=== PATIENT | female | born 1990 | race Caucasian/White ===

== ENCOUNTER 2016-07-24 20:14 | Emergency (ER) | payer OTHER ==
[2016-07-24] MEDS ORDERED: NS 0.9% 1000 ML* 1,000 ML IV ONE (20:36)
[2016-07-24 21:00] LABS: Hematocrit 43 % (35-47); Hemoglobin 14.2 g/dl (12.0-16.0); Mean Corpuscular HGB Conc 34 g/dl (31-36); Mean Corpuscular Hemoglobin 30 pg (27-31); Mean Corpuscular Volume 88 fL (80-97); Mean Platelet Volume 9 um3 (7.4-10.4); Red Blood Count 4.81 10^6/ul (4.0-5.4); Red Cell Distribution Width 13 % (10.5-15); White Blood Count 9.5 10^3/ul (3.5-10.8)
--- NOTE | 2016-07-24 21:07 | ED ---
Alonso Montesinos Billy, scribed for Naman Molina MD on 07/24/16 at 2044 . GI/ HPI - HPI Summary HPI Summary: Patient is a 26 year-old female coming to the ED with increased black, thick ostomy output today. She also reports pressure and sharp pain behind her ostomy in the RLQ. She further describes nausea and lightheadedness; denies fever. She states she recently started new medications today; she swallowed one of the pills whole. She called the GI solderer electronic at [facility] who recommended that she come to the ED for imaging to r/o any obstruction. - History of Current Complaint Chief Complaint: EDAbdPain Time Seen by Provider: 07/24/16 20:28 Stated Complaint: PROBLEM WITH STOMA Hx Obtained From: Patient Onset/Duration: Started Hours Ago Timing: Constant Severity: Moderate Current Severity: Moderate Location of Pain: RLQ Pain Characteristics: Sharp, Pressure Associated Signs and Symptoms: Positive: Nausea, Black Tarry Stool, Other: - lightheaded. Negative: Fever - Additional Pertinent History Primary Care Physician: MARV - Allergy/Home Medications Allergies/Adverse Reactions: Allergies Allergy/AdvReac Type Severity Reaction Status Date / Time Cefuroxime [From Ceftin] Allergy Severe Anaphylatic Verified 09/16/15 18:13 Shock Cephalosporins Allergy Severe Anaphylatic Verified 09/16/15 18:13 Shock Penicillins [PCN] Allergy Severe Anaphylatic Verified 09/16/15 18:13 Shock Oxycodone Allergy Hives/Diff. Verified 11/23/15 08:18 Breathing/I tching [place] Allergy Anaphylatic Verified 09/16/15 18:13 Shock PMH/Surg Hx/FS Hx/Imm Hx Endocrine/Hematology History: Denies: Hx Diabetes Cardiovascular History: Denies: Hx Congestive Heart Failure, Hx Hypertension, Hx Pacemaker/ICD Respiratory History: Reports: Hx Pneumonia, Other Respiratory Problems/ Disorders - H/O PULMONARY NODULES GI History: Reports: Hx Irritable Bowel, Other GI Disorders - ULCERATIVE COLITIS , COLOSTOMY History: Reports: Other Problems/Disorders - UTI SEVERAL YEARS AGO Denies: Hx Renal Disease Sensory History: Reports: Hx Contacts or Glasses Denies: Hx Hearing Aid Opthamlomology History: Reports: Hx Contacts or Glasses Psychiatric History: Reports: Hx Anxiety, Hx Depression Denies: Hx Panic Disorder - Surgical History Surgery Procedure, Year, and Place: ILEOSTOMY, BOWEL RESECTION WITH DRAIN FOR HEMATOMA FROM SURGERY, APPENDECTOMY DURING BOWEL RESECTION 2014 & 01/2016 COMPLETION Hx Anesthesia Reactions: No - Immunization History Date of Tetanus Vaccine: Unk Date of Influenza Vaccine: None Infectious Disease History: Reports: Hx Clostridium Difficile Denies: Traveled Outside the [place] in Last 30 Days - Family History Known Family History: Positive: Other - colon cancer - Social History Alcohol Use: None Substance Use Type: Reports: Prescribed Substance Use Comment - Amount & Last Used: DILAUDID RX Hx Tobacco Use: No Smoking Status (MU): Never Smoked Tobacco Review of Systems Negative: Fever Positive: Abdominal Pain, Nausea, Other - thick black ostomy output Neurological: Other - lightheaded All Other Systems Reviewed And Are Negative: Yes Physical Exam Triage Information Reviewed: Yes Vital Signs On Initial Exam: Initial Vitals Temp Pulse Resp BP Pulse Ox 98.1 F 87 18 132/75 99 07/24/16 20:58 07/24/16 20:58 07/24/16 20:58 07/24/16 20:58 07/24/16 20:58 Vital Signs Reviewed: Yes Appearance: Positive: Well-Appearing, No Pain Distress Skin: Positive: Warm Head/Face: Positive: Normal Head/Face Inspection ENT: Positive: Hearing grossly normal Neck: Positive: Supple Respiratory/Lung Sounds: Positive: Clear to Auscultation Cardiovascular: Positive: Normal Abdomen Description: Positive: Nontender, Soft Bowel Sounds: Positive: Present, Other - ostomy with some drainage Musculoskeletal: Positive: Strength/ROM Intact Neurological: Positive: Sensory/Motor Intact, Alert, Oriented to Person Place, Time Psychiatric: Positive: Affect/Mood Appropriate Diagnostics - Vital Signs Vital Signs Temp Pulse Resp BP Pulse Ox 07/24/16 20:58 98.1 F 87 18 132/75 99 - Laboratory Result Diagrams: 07/24/16 20:50 07/24/16 20:50 Lab Statement: Any lab studies that have been ordered have been reviewed, and results considered in the medical decision making process. - CT abd/pel w CT Interpretation Completed By: Radiologist - 1. STATUS POST COLECTOMY AND ILEOSTOMY. 2. NO OBSTRUCTION. 3. SMALL AMOUNT OF FLUID WITHIN THE PELVIC CUL- DE-SAC, DECREASED FROM PREVIOUS EXAMINATIONS. Re-Evaluation - Re-Evaluation First Eval Change: Improved GIGU Course/Dx - Diagnoses Provider Diagnoses: Abdominal pain Discharge - Discharge Plan Condition: Stable Disposition: HOME Patient Education Materials: Abdominal Pain (ED) Referrals: Katia Olmos PA [Primary Care Provider] - The documentation as recorded by the Alonso jackson Billy accurately reflects the service I personally performed and the decisions made by me, Naman Molina MD.
[2016-07-24 21:16] LABS: ALT 17 U/L (7-52); AST 18 U/L (13-39); Albumin 4.7 g/dL (3.2-5.2); Alkaline Phosphatase 39 U/L (34-104); Anion Gap -4 mmol/L (2-11); Blood Urea Nitrogen 14 mg/dL (6-24); C Reactive Protein 3.58 mg/L (< 5.00); CO2 Carbon Dioxide 24 mmol/L (22-32); Calcium 9.9 mg/dL (8.6-10.3); Chloride 110 mmol/L (101-111); EGFR African American 151.3 (>60); EGFR Non-African American 117.7 (>60); Globulin 3.1 g/dL (2-4); Glucose 92 mg/dL (70-100); Lipase 20 U/L (11.0-82.0); Magnesium 1.9 mg/dL (1.9-2.7); Potassium 3.4 mmol/L (3.5-5.0); Sodium 130 mmol/L (133-145); Total Protein 7.8 g/dL (6.4-8.9)
[2016-07-24] MEDS ORDERED: Iohexol 300* (CONTRAST) 10 ML SDV IV ONE (21:29)
--- NOTE | 2016-07-24 22:38 | RAD ---
CLINICAL HISTORY: Abdominal pain COMPARISON: December 24, 2015, November 23, 2015 TECHNIQUE: Multiple contiguous axial CT scans were obtained of the abdomen and pelvis after the administration of intravenous contrast. Coronal and sagittal multiplanar reformations are submitted for review. Oral contrast was administered. Delayed images were obtained through the abdomen FINDINGS: LUNG BASES: The lung bases are clear. LIVER: There is wedge-shaped hypoattenuation of the right lobe of liver that resolves on delayed images most consistent with transient hepatic attenuation differences.. The portal veins and hepatic veins are patent. The hepatic arteries grossly normal. BILE DUCTS: There is no intrahepatic or extrahepatic biliary dilatation. GALLBLADDER: The gallbladder is normal, without pericholecystic inflammatory change. PANCREAS: The pancreas is normal, without mass or ductal dilatation. SPLEEN: Normal in size and appearance. UPPER GI TRACT: Evaluation of the gastrointestinal tract is limited by incomplete gastric distention. The upper GI tract is unremarkable. SMALL BOWEL AND MESENTERY: The small bowel is normal in contour, course, and caliber. There is no obstruction or dilatation. Ileostomy is noted. COLON: The patient appears to be status post total colectomy. ADRENALS: Normal bilaterally. KIDNEYS: The kidneys are normal in shape, size, contour, and axis. There is no hydronephrosis or nephrolithiasis. BLADDER: The bladder is smooth in contour. PELVIC ORGANS: There is a small amount of fluid within the pelvic cul-de-sac, decreased from previous examination the pelvic organs are grossly normal for technique... AORTA: The aorta is normal. IVC: Unremarkable LYMPH NODES: There is no lymphadenopathy by size criteria. ABDOMINAL WALL: There is no evidence for abdominal wall hernia. BONES AND SOFT TISSUES: There are mild diffuse degenerative changes. OTHER: None IMPRESSION: 1. STATUS POST COLECTOMY AND ILEOSTOMY. 2. NO OBSTRUCTION. 3. SMALL AMOUNT OF FLUID WITHIN THE PELVIC CUL-DE-SAC, DECREASED FROM PREVIOUS EXAMINATIONS.
[2016-07-24 23:23] VITALS: BP 129/80
== END 2016-07-24 23:23 | disposition home or self-care (01) ==
LOC: ED 20:14
DX: R10.31 Right lower quadrant pain (principal); Z88.0 Allergy status to penicillin; Z88.5 Allergy status to narcotic agent
CPT/HCPCS: 36415; 74177; 80053; 83690; 83735; 84702; 85025; 86140; 96360; 99283; Q9967

== ENCOUNTER 2018-04-15 21:20 | Emergency (ER) | payer BC, MEDICAID, MEDICARE ==
--- NOTE | 2018-04-15 21:56 | ED ---
Abdominal Pain/Female - HPI Summary HPI Summary: The pt is a 27 y/o female with an ileostomy bag presenting to [facility] c/o of R sided abd pain since 3 days ago when she had a scope at [facility]. The constant stabbing pain rated 6/10 in severity is aggravated by any output of stool. She has had the ileostomy bag since 2014. The pt notes nausea but denies vomiting and suspects a fistula. She took Tylenol and Advil to no relief. - History of Current Complaint Chief Complaint: EDAbdPain Stated Complaint: ABD PAIN Time Seen by Provider: 04/15/18 21:49 Hx Obtained From: Patient Onset/Duration: Lasting Days - 3 days, Still Present Timing: Constant Severity Currently: Moderate Pain Intensity: 6 Pain Scale Used: 0-10 Numeric Location: Discrete At: RLQ Radiates: No Aggravating Factor(s): Other: - Output of stool Alleviating Factor(s): Nothing Associated Signs and Symptoms: Positive: Nausea. Negative: Vomiting Allergies/Adverse Reactions: Allergies Allergy/AdvReac Type Severity Reaction Status Date / Time cefuroxime [From Ceftin] Allergy Severe Anaphylatic Verified 04/15/18 21:28 Shock Cephalosporins Allergy Severe Anaphylatic Verified 04/15/18 21:28 Shock oxycodone Allergy Severe Hives/Diff. Verified 04/15/18 21:28 Breathing/I tching Penicillins Allergy Severe Anaphylatic Verified 04/15/18 21:28 Shock strawberry Allergy Severe Anaphylatic Verified 04/15/18 21:28 Shock Home Medications: Home Medications Fluticasone NASAL SPRAY 50MCG* [Flonase NASAL SPRAY 50MCG*] 1 spray BOTH NARES DAILY 04/15/18 [History Confirmed 04/15/18] Levocetirizine Dihydrochloride 5 mg PO DAILY 04/15/18 [History Confirmed ] Mesalamine (NF) [Apriso (NF)] 1 cap PO QID 04/15/18 [History Confirmed 04/15/18] Norethindrone/Eth Est 1.5NF [Junel .12/14 (NF)] 1 tab PO DAILY 04/15/18 [ History Confirmed 04/15/18] PMH/Surg Hx/FS Hx/Imm Hx Previously Healthy: No Endocrine/Hematology History: Denies: Hx Diabetes Cardiovascular History: Denies: Hx Congestive Heart Failure, Hx Hypertension, Hx Pacemaker/ICD Respiratory History: Reports: Hx Pneumonia, Other Respiratory Problems/ Disorders - H/O PULMONARY NODULES GI History: Reports: Hx Irritable Bowel, Other GI Disorders - ULCERATIVE COLITIS , COLOSTOMY History: Reports: Other Problems/Disorders - UTI SEVERAL YEARS AGO Denies: Hx Dialysis, Hx Renal Disease Sensory History: Reports: Hx Contacts or Glasses Denies: Hx Hearing Aid Opthamlomology History: Reports: Hx Contacts or Glasses Psychiatric History: Reports: Hx Anxiety, Hx Depression Denies: Hx Panic Disorder - Surgical History Surgery Procedure, Year, and Place: ILEOSTOMY, BOWEL RESECTION WITH DRAIN FOR HEMATOMA FROM SURGERY, APPENDECTOMY DURING BOWEL RESECTION 2014 & 01/2016 COMPLETION Hx Anesthesia Reactions: No - Immunization History Date of Tetanus Vaccine: Unk Date of Influenza Vaccine: None Infectious Disease History: Yes Infectious Disease History: Reports: Hx Clostridium Difficile Denies: Traveled Outside the [place] in Last 30 Days - Family History Known Family History: Positive: Other - colon cancer - Social History Lives: Alone Alcohol Use: None Substance Use Type: Reports: None Substance Use Comment - Amount & Last Used: DILAUDID RX Hx Tobacco Use: No Smoking Status (MU): Never Smoked Tobacco Review of Systems Negative: Fever Positive: Abdominal Pain - RLQ , Nausea. Negative: Vomiting All Other Systems Reviewed And Are Negative: Yes Physical Exam - Summary Physical Exam Summary: Appearance: Well appearing, no pain distress Skin: warm, dry, reflects adequate perfusion Head/face: normal Eyes: EOMI, ASHIA ENT: normal Neck: supple, non-tender Respiratory: CTA, breath sounds present Cardiovascular: RRR, pulses symmetrical Abdomen: non-tender, soft; ileostomy bag in the RLQ Bowel sounds : present Musculoskeletal: normal, strength/ROM intact Neuro: normal, sensory motor intact, A&Ox3 Triage Information Reviewed: Yes Vital Signs On Initial Exam: Initial Vitals Temp Pulse Resp BP Pulse Ox 97.7 F 105 16 132/85 100 04/15/18 21:24 04/15/18 21:24 04/15/18 21:24 04/15/18 21:24 04/15/18 21:24 Vital Signs Reviewed: Yes Diagnostics - Vital Signs Vital Signs Temp Pulse Resp BP Pulse Ox 04/15/18 21:24 97.7 F 105 16 132/85 100 - Laboratory Result Diagrams: 04/15/18 22:30 04/15/18 22:30 Lab Statement: Any lab studies that have been ordered have been reviewed, and results considered in the medical decision making process. - CT Abd/Pel CT CT Interpretation Completed By: Radiologist - IMPRESSION 1. Stable punctate nonobstructive left nephrolithiasis. 2. No other acute CT pathology. Return to ED for any new or worsening symptoms Abdominal Pain Fem Course/Dx - Course Course Of Treatment: A 27 year-old F with a PMHx of ulcerative colitis presents to the ED with a CC of R sided abd pain since 3 days ago when she had a scope at [facility]. The constant stabbing pain rated 6/10 in severity is aggravated by any stool output. She has had the ileostomy bag since 2014. The pt notes nausea but denies vomiting and suspects a fistula. She took Tylenol and Advil to no relief. A physical exam revealed an ileostomy bag in the RLQ. AN Abd/Pel CT revealed stable punctate nonobstructive left nephrolithiasis. In the ED course, pt was given Iohexol 77ml IV, N.s 0.9% 1000ml IV, Morphine 4mg IV and Ondansetron 4mg IV which improved the symptoms. The pt asked for narcotics. She will be discharged with a final Dx of non- specific abd pain with instructions to follow up with her PCP. The pt is agreeable with this plan. Allergies noted - Diagnoses Differential Diagnosis: Positive: Appendicitis, Bowel Obstruction, Diverticulitis, Renal Colic Provider Diagnoses: Nonspecific abdominal pain Discharge - Sign-Out/Discharge Documenting (check all that apply): Patient Departure - DC - Discharge Plan Condition: Improved Disposition: HOME Prescriptions: traMADol TAB* [Ultram*] 50 mg PO Q12H PRN #6 tab MDD 3 PRN Reason: Pain Patient Education Materials: Abdominal Pain (ED) Forms: *Work Release Referrals: Dilma Palacios MD [Primary Care Provider] - 3 Days Additional Instructions: Return to ED for any new or worsening symptoms - Billing Disposition and Condition Condition: IMPROVED Disposition: Home - Attestation Statements Document Initiated by Scribe: Yes Documenting Scribe: Carmel Masterson Provider For Whom Scribe is Documenting (Include Credential): Dr. Beto Lazo MD Scribe Attestation: I, Carmel Masterson , scribed for Dr. Beto Lazo MD on 04/16/18 at 0504. Scribe Documentation Reviewed: Yes Provider Attestation: The documentation as recorded by the scribe, Carmel Masterson accurately reflects the service I personally performed and the decisions made by me, Dr. Beto Lazo MD
[2018-04-15] MEDS ORDERED: Ondansetron INJ* 2 MG/ML VIAL IV ONE (22:15)
[2018-04-15] MEDS ORDERED: NS 0.9% 1000 ML* 1,000 ML IV ONE (22:15)
[2018-04-15] MEDS ORDERED: Morphine INJ* 2 MG/ML 1 ML SYRINGE (TWO MG - NEW SYRINGE VERSION) IV ONE (22:15)
[2018-04-15] MEDS ORDERED: Morphine INJ* 4 MG/ML 1 ML SYRINGE (NEW SYRINGE VERSION) ONE (22:26)
[2018-04-15 22:58] LABS: ABS Basophils 0 10^3/ul (0-0.2); ABS Eosinophils 0.5 10^3/ul (0-0.6); ABS Lymphocytes 3.5 10^3/ul (1.0-4.8); ABS Monocytes 0.3 10^3/ul (0-0.8); ABS Neutrophils 3.6 10^3/ul (1.5-7.7); ABS Nucleated RBC 0 10^3/ul; Eosinophil % 6.4 % (0-6); Hematocrit 41 % (35-47); Hemoglobin 14.2 g/dl (12.0-16.0); Lymphocyte % 44.3 % (25-47); Mean Corpuscular HGB Conc 35 g/dl (31-36); Mean Corpuscular Hemoglobin 31 pg (27-31); Mean Corpuscular Volume 90 fL (80-97); Mean Platelet Volume 8.3 um3 (7.4-10.4); Nucleated Red Blood Cells % 0.1; Platelet Count 212 10^3/ul (150-450); Red Blood Count 4.56 10^6/ul (4.00-5.40); Red Cell Distribution Width 12 % (10.5-15); White Blood Count 7.8 10^3/ul (3.5-10.8)
[2018-04-15 23:08] LABS: INR 0.94 (0.77-1.02)
[2018-04-15 23:19] LABS: EGFR Non-African American 99.6 (>60)
[2018-04-15 23:28] LABS: Urine Appearance Cloudy; Urine Blood Negative (Negative); Urine Color Yellow; Urine Ketones Negative (Negative); Urine Protein Negative (Negative); Urine Specific Gravity 1.008 (1.010-1.030); Urine Urobilinogen Negative (Negative)
[2018-04-15] MEDS ORDERED: Iohexol 300* (CONTRAST) 10 ML SDV IV ONE (23:34)
--- NOTE | 2018-04-16 00:49 | RAD ---
EXAM: CT Abdomen and Pelvis With Intravenous Contrast CLINICAL HISTORY: 27 years old, female; Pain; Abdominal pain; Generalized; Prior surgery; Surgery date: 6+ months; Additional info: Abd pain/ileostomy/rt lq tend TECHNIQUE: Axial computed tomography images of the abdomen and pelvis with intravenous contrast. All CT scans at this facility use at least one of these dose optimization techniques: automated exposure control; mA and/or kV adjustment per patient size (includes targeted exams where dose is matched to clinical indication); or iterative reconstruction. Coronal and sagittal reformatted images were created and reviewed. CONTRAST: 77 mL of OMNI administered intravenously. COMPARISON: A/P WO CT ABD/PEL W/O 12/24/2015 2:16 AM, CT abdomen and pelvis July 24, 2016 FINDINGS: Lung bases: Stable right lower lobe parenchymal scarring. Stable 2-3 mm indeterminate right lower lobe pulmonary nodules. ABDOMEN: Liver: Significant decrease in size of wedge-shaped or linear region of decreased enhancement in the right lobe of the liver that is no longer apparent on delayed imaging, likely of no clinical significance. There is likely focal fat in liver adjacent to the falciform ligament. Stable mild hepatomegaly. Gallbladder and bile ducts: Unremarkable. No calcified stones. No ductal dilation. Pancreas: Unremarkable. No mass. No ductal dilation. Spleen: Unremarkable. No splenomegaly. Adrenals: Unremarkable. No mass. Kidneys and ureters: Stable punctate nonobstructive left nephrolithiasis. Stomach and bowel: Stable right lower quadrant ileostomy. Stable likely postoperative changes of colectomy. No obstruction. PELVIS: Appendix: The appendix is surgically absent. Bladder: Unremarkable. No mass. Reproductive: Unremarkable as visualized. ABDOMEN and PELVIS: Intraperitoneal space: Unremarkable. No free air. No significant fluid collection. Bones/joints: No acute fracture. No dislocation. Soft tissues: Unremarkable. Vasculature: Unremarkable. No abdominal aortic aneurysm. Lymph nodes: Unremarkable. No enlarged lymph nodes. IMPRESSION: 1. Stable punctate nonobstructive left nephrolithiasis. 2. No other acute CT pathology.
[2018-04-16 01:27] VITALS: BP 129/83
== END 2018-04-16 01:27 | disposition home or self-care (01) ==
LOC: ED 21:20
DX: R10.9 Unspecified abdominal pain (principal); R11.0 Nausea
CPT/HCPCS: 36415; 74177; 80053; 81003; 83690; 84702; 85025; 85610; 85730; 96374; 96375; 99283; J2270; J2405; Q9967

== ENCOUNTER 2018-11-17 18:00 | Emergency (ER) | payer BC ==
--- OUTSIDE RECORDS SUMMARY | 2018-11-17 18:10 | XMS REPORT | Continuity of Care Document ---
:1990 External Reference #:[id number] Author Name Yong Kaur MD Address [address] [place] [address] Care Team Providers Name Role Phone Dilma Palacios MD Care Team Information Garment Examiner Unavailable Dilma Palacios MD Primary Care Physician Unavailable Payers Date Identification Numbers Payment Provider Subscriber Effective: 2018 Policy Number: [id number] [facility] [employer] Brielle Eaton PayID: [id number] [address] [address] [place] [address] Expires: 2017 Policy Number: [id number] Medicare [facility] Brielle Eaton PayID: [id number] [address] [place] [address] Policy Number: [id number] Medicaid [place] Brielle Eaton PayID: [id number] [address] [place] [address] Advance Directives Description No Information Available Problems Active Problems Provider Date Allergic rhinitis due to pollen Yong Kaur MD Onset: 04/12/2017 Allergic rhinitis Yong Kaur MD Onset: 04/12/2017 Family History Date Family Member(s) Observation Comments General Allergies Social History Type Date Description Comments Sex Unknown Smoke-Free Home is smoke-free Pets 2 cats Tobacco Use Start: Unknown Patient is a current smokes marijuana for smoker, smokes some days migraines Smoking Status Reviewed: 11/16/18 Patient is a current smokes marijuana for smoker, smokes some days migraines Allergies, Adverse Reactions, Alerts Active Allergies Reaction Severity Comments Date Penicillins 04/12/2017 Cefuroxime 04/12/2017 Oxycodone 04/12/2017 Medications Active Medications SIG Qnty Indications Ordering Date Provider Fluticasone Use 2 Sprays In 48ml PATRIZIA Cee 10/24/2018 Propionate Each Nostril 50mcg/Act Daily Suspension Xyzal Allergy 24HR Take 1 Tablet By 90Tablet PATRIZIA Cee 10/02/2018 5mg Mouth Every Day Tablets as Needed Gentamicin Sulfate Apply To Wound Unknown 0.1% Every Other Day Ointment Rizatriptan Benzoate 1 Tab AT Onset Unknown Of Migrain. November 10mg Tablets Dispers Repeat In 2 Hours If Needed. DO Not Use More Than Twice A Week Pentasa Take 1 Cap By Unknown 250mg Capsules Mouth Four Times ER Daily. Hydroxyzine HCL Take 1 To 2 Unknown 10mg Tablets By Mouth Tablets 3 Times A Day as Needed For Severe Panic Attack Tacrolimus Apply A Small Unknown 0.1% Amount To The Ointment Wound Three Times Weekly .12/14 Take 1 Tablet By Unknown Mouth Daily Skip 1.5-30mg-mcg Tablets Placebo Pills To Prevent Periods Prednisone Take 1 Tablet By Unknown 10mg Tablets Mouth Every Day Prednisone Crush Tablet And Unknown 1mg Tablets Apply To Wound Of Abdomen Once Daily Hyoscyamine Sulfate Roel, ER Elena Mondragon, 0.375mg Tablets ER DIRECTOR [employer]-C 12HR .30 Unknown 1.5-30mg-mcg Tablets Apriso 4 times a day Unknown 0.375gm Caps ER 24HR Amitriptyline HCL 1 tab by mouth Unknown 50mg every day every Tablets night Zonisamide Take 1 Capsule Unknown 25mg By Mouth For 1 Capsules Week,Then 2 Capsules X1 Week,Then 3 Caps Zofran take one to two Unknown 4mg Tablets tablets every 6 hours as needed. Dilaudid Unknown 4mg Tablets Imodium Multi-Symptom Unknown Relief 2-125mg Tablets Rizatriptan Benzoate Unknown 10mg Tablets History Medications Fluticasone Use 2 Sprays In 48ml Naman Awad, 10/23/2018 - Propionate Each Nostril Daily RPA-C 10/24/2018 50mcg/Act Suspension Xyzal Allergy 24HR Take 1 Tablet By 90Tablet Naman Awad, 09/29/2018 - Mouth Every Day as RPA-C 10/02/2018 5mg Tablets Needed Fluticasone spray 2 sprays in 16gm J30.1 Yong Reyes 11/10/2017 - Propionate each nostril daily MD Vincent 10/23/2018 50mcg/Act Suspension Xyzal Allergy 24HR take 1 tablet (5 30tabs J30.1 Yong Reyes 2016 - mg) by oral route MD Vincent 09/29/2018 5mg Tablets once daily as needed Nasonex 2 intranasal puffs 51gm J30.1 Yong Reyes 04/12/2017 - 50mcg/Act every day MD Vincent 05/11/2018 Suspension Zoloft Unknown - 11/10/2017 Concentrate Xanax 1/2 tablet as Unknown - 0.25mg needed 05/11/2018 Tablets Pentasa qid Unknown - 500mg 11/10/2017 Capsules ER Topamax Sprinkle qid Unknown - 04/18/2017 25mg Caps Sprinkle Ranitidine HCL take one tablet by Unknown - mouth twice a day 04/18/2017 150mg Tablets Delia Allergy 1 tab everyday as Unknown - needed 04/18/2017 180mg Tablets Doxycycline Take 1 Capsule Unknown - Monohydrate (100 MG Total) By 05/11/2018 100mg Mouth 2 Times Capsules Daily Tramadol HCL Take 1 Tablet By Unknown - 50mg Mouth Every 12 05/11/2018 Tablets Hours as Needed For Pain Doxycycline Take One Capsule Unknown - Hyclate By Mouth Twice A 05/11/2018 100mg Day Capsules Sertraline HCL Take 5 Milliliters Unknown - Once Daily 05/11/2018 20mg/ml Concentrate Medications Administered in Office Medication SIG Qnty Indications Ordering Provider Date Allergy Injection 2 Or More Yong Kaur MD 11/16/2018 Injection Allergy Injection 2 Or More Yong Kaur MD 11/09/2018 Injection Allergy Injection 2 Or More Yong Kaur MD 11/02/2018 Injection Allergy Injection 2 Or More Yong Kaur MD 10/26/2018 Injection Allergy Injection 2 Or More Yong Kaur MD 10/19/2018 Injection Allergy Injection 2 Or More Yong Kaur MD 10/05/2018 Injection Allergy Injection 2 Or More Yong Kaur MD 09/21/2018 Injection Allergy Injection 2 Or More Yong Kaur MD 08/31/2018 Injection Allergy Injection 2 Or More Yong Kaur MD 08/17/2018 Injection Allergy Injection 2 Or More Yong Kaur MD 07/25/2018 Injection Allergy Injection 2 Or More Yong Kaur MD 07/06/2018 Injection Allergy Injection 2 Or More Yong Kaur MD 06/29/2018 Injection Allergy Injection 2 Or More Yong Kaur MD 06/22/2018 Injection Allergy Injection 2 Or More Yong Kaur MD 06/06/2018 Injection Allergy Injection 2 Or More Yong Kaur MD 06/01/2018 Injection Allergy Injection 2 Or More Yong Kaur MD 05/23/2018 Injection Allergy Injection 2 Or More Yong Kaur MD 05/11/2018 Injection Allergy Injection 2 Or More Yong Kaur MD 05/04/2018 Injection Allergy Injection 2 Or More Yong Kaur MD 04/20/2018 Injection Allergy Injection 2 Or More Yong Kaur MD 04/13/2018 Injection Allergy Injection 2 Or More Yong Kaur MD 04/06/2018 Injection Allergy Injection 2 Or More Yong Kaur MD 03/30/2018 Injection Allergy Injection 2 Or More Yong Kaur MD 03/23/2018 Injection Allergy Injection 2 Or More Yong Kaur MD 03/09/2018 Injection Allergy Injection 2 Or More Yong Kaur MD 03/02/2018 Injection Allergy Injection 2 Or More Yong Kaur MD 02/23/2018 Injection Allergy Injection 2 Or More Yong Kaur MD 02/14/2018 Injection Allergy Injection 2 Or More Yong Kaur MD 02/02/2018 Injection Allergy Injection 2 Or More Yong Kaur MD 01/24/2018 Injection Allergy Injection 2 Or More Yong Kaur MD 01/17/2018 Injection Allergy Injection 2 Or More Yong Kaur MD 01/10/2018 Injection Allergy Injection 2 Or More Yong Kaur MD 01/03/2018 Injection Allergy Injection 2 Or More Yong Kaur MD 12/20/2017 Injection Allergy Injection 2 Or More Yong Kaur MD 12/13/2017 Injection Allergy Injection 2 Or More Yong Kaur MD 12/06/2017 Injection Allergy Injection 2 Or More Yong Kaur MD 11/24/2017 Injection Immunizations Description No Information Available Vital Signs Date Vital Result Comment 05/11/2018 3:01pm BP Systolic 82 mmHg BP Diastolic 62 mmHg Height 65 inches 5'5" Weight 127.00 lb BMI (Body Mass Index) 21.1 kg/m2 Heart Rate 112 /min Respiratory Rate 16 /min Body Temperature 97.6 F 11/10/2017 1:06pm BP Systolic 92 mmHg BP Diastolic 64 mmHg Height 65 inches 5'5" Weight 125.00 lb BMI (Body Mass Index) 20.8 kg/m2 Heart Rate 101 /min Body Temperature 97.9 F O2 % BldC Oximetry 98 % 05/12/2017 1:08pm Height 65 inches 5'5" Weight 111.00 lb BMI (Body Mass Index) 18.5 kg/m2 Heart Rate 84 /min Respiratory Rate 16 /min Body Temperature 99.6 F O2 % BldC Oximetry 98 % 04/12/2017 4:30pm BP Systolic 88 mmHg BP Diastolic 58 mmHg Height 65 inches 5'5" Weight 111.50 lb BMI (Body Mass Index) 18.6 kg/m2 Heart Rate 95 /min Respiratory Rate 10 /min Body Temperature 99.1 F O2 % BldC Oximetry 98 % Results Description No Information Available Procedures Date Code Description Status 11/16/2018 92465 Allergy Injection 2 Or More Completed 11/09/2018 12880 Allergy Injection 2 Or More Completed 11/02/2018 61045 Allergy Injection 2 Or More Completed 10/26/2018 13111 Allergy Injection 2 Or More Completed 10/19/2018 02551 Allergy Injection 2 Or More Completed 10/05/2018 01969 Allergy Injection 2 Or More Completed 09/25/2018 72219 Allergy Antigens Single Or Multiple Completed 09/21/2018 70640 Allergy Injection 2 Or More Completed 08/31/2018 76010 Allergy Injection 2 Or More Completed 08/17/2018 81099 Allergy Injection 2 Or More Completed 07/25/2018 98178 Allergy Injection 2 Or More Completed 07/06/2018 33345 Allergy Injection 2 Or More Completed 06/29/2018 31695 Allergy Injection 2 Or More Completed 06/22/2018 31208 Allergy Injection 2 Or More Completed 06/06/2018 71577 Allergy Injection 2 Or More Completed 06/01/2018 39692 Allergy Injection 2 Or More Completed 05/23/2018 30512 Allergy Injection 2 Or More Completed 05/11/2018 94549 Allergy Injection 2 Or More Completed 05/04/2018 01933 Allergy Injection 2 Or More Completed 04/20/2018 06836 Allergy Injection 2 Or More Completed 04/13/2018 91658 Allergy Injection 2 Or More Completed 04/06/2018 26538 Allergy Injection 2 Or More Completed 03/30/2018 95936 Allergy Injection 2 Or More Completed 03/23/2018 42114 Allergy Injection 2 Or More Completed 03/09/2018 63708 Allergy Injection 2 Or More Completed 03/02/2018 78305 Allergy Injection 2 Or More Completed 02/23/2018 23989 Allergy Injection 2 Or More Completed 02/14/2018 33835 Allergy Injection 2 Or More Completed 02/02/2018 02894 Allergy Injection 2 Or More Completed 01/24/2018 60761 Allergy Injection 2 Or More Completed 01/17/2018 60302 Allergy Injection 2 Or More Completed 01/10/2018 29688 Allergy Injection 2 Or More Completed 01/03/2018 58405 Allergy Injection 2 Or More Completed 12/20/2017 17039 Allergy Injection 2 Or More Completed 12/13/2017 69023 Allergy Injection 2 Or More Completed 12/06/2017 15396 Allergy Injection 2 Or More Completed 11/24/2017 75699 Allergy Injection 2 Or More Completed 06/01/2017 71439 Allergy Antigens Single Or Multiple Completed 04/12/2017 95593 Allergy Tests Percutaneous W/ Allergenic Extracts Completed Encounters Type Date Location Provider Dx Diagnosis Office Visit 11/16/2018 2:30p PATRIZIA Mckay J30.1 Allergic rhinitis due to pollen J30.89 Other allergic rhinitis Office Visit 05/11/2018 3:00p PATRIZIA Mckay J30.1 Allergic rhinitis due to pollen J30.89 Other allergic rhinitis Office Visit 11/10/2017 1:00p PATRIZIA Mckay J30.1 Allergic rhinitis due to pollen J30.89 Other allergic rhinitis Office Visit 05/12/2017 1:00p Karl De Dios J30.1 Allergic RPA-C rhinitis due to pollen .89 Other allergic rhinitis Office Visit 04/12/2017 4:00p Karl Kaur J30.1 Allergic rhinitis MD due to pollen . Other allergic rhinitis Plan of Treatment Future Appointment(s):11/20/2019 3:00 pm - PATRIZIA Cee at [id number] - PATRIZIA CeeJ30.1 Allergic rhinitis due to pollenComments:Patient to continue Flonase for prophylaxis of her nose and Xyzal for breakthrough nasal symptoms. Saline nasal rinse and HEPA air filter may help decrease allergens. Patient to continue allergy immunotherapy injections.Follow up:one year89 Other allergic rhinitis
[2018-11-17 19:03] VITALS: BP 95/59
--- NOTE | 2018-11-17 19:12 | UC ---
Skin Complaint HPI - HPI Summary HPI Summary: 28 year old female with n oPMH present after fall at work around 6:45, patient states she fell onto face and L knee, did not notice knee pain initially but co- worker told her she was limping. Denies prior knee injuries. + nose bleed , now controlled but states was continuously bleeding for ~ 45 minutes. Denies LOC, headache. + pain on bridge of nose, feels full inside of nose. - History of Current Complaint Chief Complaint: UCTrauma Time Seen by Provider: 11/17/18 18:55 Stated Complaint: FACIAL INJURY Hx Obtained From: Patient Hx Last Menstrual Period: 2016 ?: No Onset/Duration: Sudden Onset, Lasting Minutes Skin Exposure Onset/Duration: Minutes Ago Timing: Constant Onset Severity: Moderate Current Severity: Moderate Pain Intensity: 4 Pain Scale Used: 0-10 Numeric Location: Discrete - nose, Nose Character: Swelling, Pain, Redness Aggravating Factor(s): Other - blowing nose, sniffling Alleviating Factor(s): Nothing - Allergy/Home Medications Allergies/Adverse Reactions: Allergies Allergy/AdvReac Type Severity Reaction Status Date / Time cefuroxime [From Ceftin] Allergy Severe Anaphylatic Verified 11/17/18 19:03 Shock Cephalosporins Allergy Severe Anaphylatic Verified 11/17/18 19:03 Shock oxycodone Allergy Severe Hives/Diff. Verified 11/17/18 19:03 Breathing/I tching Penicillins Allergy Severe Anaphylatic Verified 11/17/18 19:03 Shock strawberry Allergy Severe Anaphylatic Verified 11/17/18 19:03 Shock Home Medications: Home Medications Adalimumab [Humira] 40 mg INJ 11/17/18 [History] Rizatriptan Benzoate [Rizatriptan Benzoate Odt] 10 mg PO PRN 11/17/18 [History] Sertraline* [Zoloft*] 150 mg PO DAILY 11/17/18 [History Confirmed 11/17/18] hydrOXYzine HCL TAB* [Atarax 10 MG TAB*] 10 mg PO TID PRN 11/17/18 [History Confirmed 11/17/18] PMH/Surg Hx/FS Hx/Imm Hx Previously Healthy: Yes - Surgical History Surgical History: Yes Surgery Procedure, Year, and Place: ILEOSTOMY, BOWEL RESECTION WITH DRAIN FOR HEMATOMA FROM SURGERY, APPENDECTOMY DURING BOWEL RESECTION 2014 & 01/2016 COMPLETION - Family History Known Family History: Positive: None, Other - colon cancer - Social History Alcohol Use: Occasionally Substance Use Type: Marijuana Substance Use Comment - Amount & Last Used: DILAUDID RX Smoking Status (MU): Never Smoked Tobacco - Immunization History Most Recent Influenza Vaccination: 04/28 Most Recent Tetanus Shot: UNSURE Most Recent Pneumonia Vaccination: NONE Review of Systems All Other Systems Reviewed And Are Negative: Yes ENT: Positive: Epistaxis, Sinus Pain/Tenderness Musculoskeletal: Positive: Arthralgia, Myalgia Neurological: Negative: Headache Is Patient Immunocompromised?: No Physical Exam Triage Information Reviewed: Yes Appearance: Well-Appearing, No Pain Distress, Well-Nourished Vital Signs: Initial Vital Signs Temp 100 F 11/17/18 18:57 Pulse 82 11/17/18 18:57 Resp 18 11/17/18 18:57 BP 95/59 11/17/18 18:57 Pulse Ox 100 11/17/18 18:57 Vital Signs Reviewed: Yes Eyes: Positive: Conjunctiva Clear ENT: Positive: Other - turbinates inflammed, swollen L nares, R nares with superficial laceration mid without bleeding, no drainage noted. nasal bridge intact, mild pain with palpation, no crepitus, movement noted, no deformity.. Negative: Nasal congestion, Nasal drainage, Sinus tenderness Neck: Positive: Supple, Nontender Musculoskeletal: Positive: Strength Intact - RIght knee, ROM Intact - RIght knee , Edema @ - minimal swelling of pre-patellar bursa with slight tenderness t palpation. neg acl/ pcl testing, neg mcmurrays, no lax/ pain with valgus, varus stress testing. Neurological Exam: Normal Neurological: Positive: Alert, Muscle Tone Normal Psychological Exam: Normal Skin: Positive: Other - small area of erythema over patella, no open wounds, sores noted. Course/Dx - Course Course Of Treatment: radiographs not needed, RICE, work note given. Nose- if bleeding reoccurs, pressure as shown. no blowing nose. - Diagnoses Provider Diagnosis: Bleeding nose, Knee injury Discharge - Sign-Out/Discharge Documenting (check all that apply): Patient Departure All imaging exams completed and their final reports reviewed: No Studies - Discharge Plan Condition: Good Disposition: HOME Patient Education Materials: Nosebleed (ED), R.I.C.E. Treatment (ED) Forms: *Work Release Referrals: Dilma Palacios MD [Primary Care Provider] - Additional Instructions: - HOld pressure to nose for 10 minutes if bleeding re-occurs - Ice to nose, knee to decrease swelling x 24 hours, 20 minutes on, 20 minutes off - Tylenol as needed for pain - Work note given - GO to ER with changes in mental statue, headache not helped by tylenol, vomiting - Billing Disposition and Condition Condition: GOOD Disposition: Home - Attestation Statements Provider Attestation: Patient not seen by me. I was available for consult.
== END 2018-11-17 19:49 | disposition home or self-care (01) ==
LOC: UCEAST 18:00
DX: S89.92XA Unspecified injury of left lower leg, initial encounter (principal); R04.0 Epistaxis; W19.XXXA Unspecified fall, initial encounter; Z88.0 Allergy status to penicillin; Z88.8 Allergy status to other drugs, medicaments and biological substances
CPT/HCPCS: 99211; G0463